=== PATIENT | male | born 1940 | race Caucasian/White ===

== ENCOUNTER 2017-11-15 08:35 | Emergency (ER) | END 2017-11-15 11:53 | disposition home or self-care (01) ==

== ENCOUNTER 2019-07-20 22:35 | Emergency (ER) | payer OTHER ==
[~2019-07-20] VITALS: Ht 170.2 cm; Wt 70.0 kg
[~2019-07-20 22:35] MED LIST: ACET325T33 PO; AMLO-147 PO; DORZ10DR5 BOTH EYES; HYDR-3498 PO; LATA2.5D19 LEFT EYE; LISI10TA2 PO; LORA10TA3 PO; MAG PO; MELO15TA30 PO; OMEP20CA17 PO; PANT40TA4 PO; TAMS-14 PO; ZOLP5TAB7 PO
[2019-07-20 22:37] VITALS: Ht 170.2 cm; Wt 70.0 kg
[2019-07-21 00:57] VITALS: BP 130/85; PULSE 81; RESP 19
[2019-07-21] MEDS ORDERED: ONDANSETRON 4 MG INJ IV PRN (02:00)
[2019-07-21] MEDS ORDERED: ACETAMINOPHEN 325 MG TAB PO PRN (02:00)
== END 2019-07-21 02:38 | disposition left against medical advice (07) ==
LOC: E/R 22:35 → CANBEDREQ 07-23 22:13
DX: S01.81XA Laceration without foreign body of other part of head, initial encounter (principal); R55 Syncope and collapse; I10 Essential (primary) hypertension; W01.0XXA Fall on same level from slipping, tripping and stumbling without subsequent striking against object, initial encounter; Y92.410 Unspecified street and highway as the place of occurrence of the external cause
CPT/HCPCS: 36415; 71045; 80048; 84484; 85025; 93005